=== PATIENT | female | born 1985 ===

== ENCOUNTER 2023-08-09 15:38 | Outpatient (REF) | payer MEDICAID, OTHER, SELFPAY ==
[2023-08-09 16:27] LABS: MANUAL DIFF FLAG NO
[2023-08-09 16:58] LABS: Basophils Percent Auto 0.3 % (0-2); Eosinophils Absolute Auto 0.1 X10*3/uL (0.0-0.4); Hematocrit 36.7 % (37.0-47.0); Hemoglobin 11.8 g/dl (12.0-16.0); Imm Gran Abs Auto 0.04 X10*3/uL (0.00-0.03); Imm Gran Pct Auto 0.6 % (0.0-0.4); Lymphocytes Absolute Auto 1.8 X10*3/uL (1.2-4.9); Lymphocytes Percent Auto 25.3 % (20-40); Mean Corpuscular HGB Conc 32.2 g/dl (31.0-35.0); Mean Corpuscular Hemoglobin 25.9 pg (27.0-33.0); Mean Corpuscular Volume 80.5 fL (80.0-98.0); Mean Platelet Volume 11.3 fL (9.4-12.3); Monocytes Absolute Auto 0.7 X10*3/uL (0.1-1.2); Monocytes Percent Auto 9.6 % (2-11); Neutrophils Absolute Auto 4.3 x10*3/uL (2.0-8.3); Neutrophils Percent Auto 62.2 % (45-73); Platelet Count 263 X10*3/uL (160-400); Red Blood Count 4.56 X10*6/uL (4.20-5.50); Red Cell Distribution Width 13.6 % (11.0-16.0)
[2023-08-09 17:49] LABS: Alanine Aminotransferase 17 U/L (0-31); Albumin Level 3.9 g/dL (3.5-5.0); Alkaline Phosphatase 97 U/L (39-117); Anion Gap 12 (12-20); Aspartate Amino Transferase 15 U/L (5-31); Bilirubin Direct < 0.2 mg/dL (0.0-0.5); Bilirubin Total 0.2 mg/dL (0.0-1.0); Blood Urea Nitrogen 12 mg/dL (9-16); Calcium 9.4 mg/dL (8.4-10.2); Carbon Dioxide 23 mmol/L (22-29); Chloride 108 mmol/L (96-108); Estimated Glomerular Filt Rate > 60; Glucose Random 105 mg/dL (60-115); Potassium 3.7 mmol/L (3.3-5.1); Sodium 139 mmol/L (135-145)
[2023-08-10 09:14] LABS: Syphilis Screen Nonreactive (Nonreactive)
[2023-08-10 09:43] LABS: HBS Num1 23.32 mIU/mL (0-7.99); HBc Num1 0.08 S/CO (0.00-0.79); HBsAGNum1 0.31 S/CO (0.00-0.99); HIV AB/AG Nonreactive (Nonreactive); HIV Num 1 0.05 S/CO (0.00-0.99); Hepatitis B Core Antibody Nonreactive (Nonreactive); Hepatitis B Surface Antigen Negative (Negative); ~HepC Num1 0.04 S/CO (0.00-0.79); ~Hepatitis B Surface Antibody REACTIVE (Nonreactive); ~Hepatitis C Antibody Nonreactive (Nonreactive)
== END 2023-08-09 15:39 | disposition home or self-care (01) ==
LOC: HO.LAB 15:38
PROVIDERS: PCP Registered Nurse; Visit Provider Internal Medicine
DX: Z22.7 Latent tuberculosis (principal)
CPT/HCPCS: 36415; 80048; 80076; 85025; 86704; 86706; 86780; 86803; 87340; 87389; 99202

== ENCOUNTER 2023-08-09 15:38 | Outpatient (AMB) | payer SELFPAY ==
--- NOTE | 2023-08-09 15:27 | MHC.OFFVIS ---
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 She has no active symptoms. [facility] Medical History Latent tuberculosis Review of Systems Const All systems reviewed & are unremarkable except as noted in HPI and below Physical Exam Vital Signs: Last Vital Signs Pulse 77 08/09/23 15:45 BP 118/63 08/09/23 15:45 Pulse Ox 99 08/09/23 15:45 BMI result Body Mass Index 30.0 Const General: cooperative Orientation/consciousness: patient oriented x3 HEENT Head: Yes normal to inspection Mouth: Normal oral and palatal mucosa present Eyes General: appearance normal, both eyes and all related structures Pupils: Equal, round and reactive pupils present Resp Effort & Inspection: normal respiratory effort Cardio Rate: regular rate Rhythm: regular rhythm GI Palpation (GI): Soft to palpation and nontender General: Yes no CVA tenderness Back/Spine/Pelvis Back: no CVA tenderness Skin General skin exam: no rashes or lesions noted Neuro General: patient oriented x3 Cranial nerves: Yes CN's II-XII intact bilaterally and Yes Equal, round and reactive pupils present Extrem General: Yes normal to inspection Psych Appearance: grossly normal Assessment & Plan Assessment & Plan (1) 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 Check HIV test. See after blood work Orders: Orders HIV Ab/Ag 08/09/23 Z. - Latent tuberculosis Hepatitis B Surface Antigen 08/09/23 Z.7 - Latent tuberculosis Liver Panel 08/09/23 Z. - Latent tuberculosis Complete Blood Count Auto Diff 08/09/23 Z. - Latent tuberculosis Basic Metabolic Panel 08/09/23 Z.7 - Latent tuberculosis Hepatitis B Surface Antibody 08/09/23 Z.7 - Latent tuberculosis Hepatitis C Antibody 08/09/23 Z22.7 - Latent tuberculosis Syphilis Screen 08/09/23 Z22.7 - Latent tuberculosis Hepatitis B Core Antibody 08/09/23 Z.7 - Latent tuberculosis Coding Level of Care Code New Pt Level 3 (78116) Diagnoses Latent tuberculosis Z22.7
[2023-08-09 15:45] VITALS: BP 118/63; PULSE 77; O2SAT 99
== END 2023-08-09 16:09 | disposition home or self-care (01) ==
PROVIDERS: PCP Registered Nurse; Visit Provider Internal Medicine
DX: Z22.7 Latent tuberculosis (principal)
CPT/HCPCS: 99203